=== PATIENT | female | born 1985 | race Caucasian/White ===

== ENCOUNTER 2017-11-22 21:21 | Emergency (ER) | payer OTHER, SELFPAY ==
[2017-11-22 21:23] VITALS: BP 141/72; PULSE 93; RESP 16; TEMP 36.6; O2SAT 96; BMI 38.0
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
== END 2017-11-22 22:18 | disposition home or self-care (01) ==
LOC: ED 22:08
PROVIDERS: Emergency Provider Emergency Medicine
DX: S20.212A Contusion of left front wall of thorax, initial encounter (principal); V43.52XA Car driver injured in collision with other type car in traffic accident, initial encounter; Y93.9 Activity, unspecified; Y92.9 Unspecified place or not applicable; Y99.9 Unspecified external cause status
CPT/HCPCS: 71046; 99282

== ENCOUNTER → 2018-01-20 15:30 | Outpatient (CLI) | payer OTHER, SELFPAY ==
[2018-01-20 17:39] LABS: Absolute Lymphocyte Count 2.98 X10^3/ul (0.83-4.51); Absolute Neutrophil Count 6.4 X10^3/uL (2.0-7.7); Basophil# 0.03 X10^3/uL; Basophil% 0.3 % (0-1); Eosinophil# 0.25 X10^3/uL; Eosinophils% 2.4 % (0-5); Hematocrit 40.7 % (37-47); Hemoglobin 13.3 g/dl (12.0-15.0); Lymphocyte # 2.98 X10^3/ul (4.0); Lymphocyte % 29.1 % (19-41); Mean Corp Hgb Conc 32.7 g/gl (32-36); Mean Corpuscular Hgb 32.1 pg (27.0-32.0); Mean Corpuscular Volume 98.3 fL (81-99); Mean Platelet Vol. 12.4 fl (6.2-12.0); Monocyte# 0.54 X10^3/uL; Monocyte% 5.3 % (0-10); Neutrophil # 6.39 X10^3/uL (2.7-7.7); Neutrophil % 62.4 % (47-70); Platelet Count 241 K/mm3 (150-450); RBC Distribution Width CV 14.6 % (11.6-14.6); RBC Distribution Width SD 51.6 fl (35.1-43.9); Red Blood Count 4.14 M/mm3 (4.2-5.4); White Blood Count 10.2 K/mm3 (4.4-11.0)
[2018-01-20 17:40] LABS: POSITIVE COUNT NO; POSITIVE DIFFERENTIAL NO; POSITIVE MORPHOLOGY NO
[2018-01-20 19:28] LABS: ALB/GLOB Ratio 1.1 RATIO (0.9-2.4); AST(SGOT) 35 U/L (15-37); Alanine Aminotransfer ALT/SGPT 29 U/L (13-56); Albumin, Serum 4.2 g/dL (3.2-5.0); Alkaline Phosphatase 98 U/L (45-117); Anion Gap 7 (5-15); BUN 10 mg/dL (7-18); Calcium,Total 9.1 mg/dL (8.5-10.1); Chloride 105 mmol/L (98-107); Creatinine, Serum 0.77 mg/dL (0.55-1.02); EST Glomerular Filtration Rate 91 mL/min (>60); Est Glom Filt Rate - Afr Amer 110 mL/min (>60); Globulin 3.7 g/dL (2.2-4.2); Glucose 92 mg/dL (74-106); Potassium 3.8 mmol/L (3.5-5.1); Protein, Total 7.9 g/dL (6.4-8.2); Sodium Level 140 mmol/L (136-145); T4 Total, Thyroxin 1.7 ug/dL (4.8-13.9)
== END ==
PROVIDERS: Visit Provider Family Medicine
DX: E03.9 Hypothyroidism, unspecified (principal); R53.81 Other malaise; R53.83 Other fatigue
CPT/HCPCS: 36415; 80053; 84436; 84443; 85025

== ENCOUNTER → 2018-02-24 12:44 | Outpatient (CLI) | payer OTHER, SELFPAY ==
[2018-02-24 14:00] LABS: Thyroid Stim Hormone (TSH) 0.36 uIU/mL (0.358-3.74)
== END ==
PROVIDERS: Family Provider Family Medicine; PCP Family Medicine; Visit Provider Family Medicine
DX: E03.9 Hypothyroidism, unspecified (principal)
CPT/HCPCS: 36415; 84443

== ENCOUNTER → 2018-03-25 13:49 | Outpatient (CLI) | payer OTHER, SELFPAY | LOC: MFPLAB 13:50 | PROVIDERS: Family Provider Family Medicine; PCP Family Medicine; Visit Provider Family Medicine | DX: E03.9 Hypothyroidism, unspecified (principal) | CPT/HCPCS: 36415; 84443 ==

== ENCOUNTER 2018-10-19 09:48 | Day surgery (SDC) | payer OTHER, SELFPAY ==
[2018-08-24 09:33] VITALS: BMI 39.1
[2018-09-23 13:57] VITALS: BMI 37.5
--- NOTE | 2018-09-24 08:29 | HP_ITS ---
Intake Vital Signs 09/23/18 Height 5 ft 7 in 09/23/18 Weight: 240 lb 09/23/18 Body Mass Index (BMI) 37.5 09/23/18 Blood Pressure 126/83 H 09/23/18 Blood Pressure Location Rt brachial 09/23/18 Blood Pressure Position Sitting 09/23/18 Respiratory Rate 14 09/23/18 Pulse Rate 85 09/23/18 Pulse Source Monitor 09/23/18 Temperature 98.3 F 09/23/18 Temperature Source Oral 09/23/18 Pulse Ox 97 09/23/18 Oxygen Delivery Method room air Intake Visit Reasons: Update Hernia Surgery 10/19 Chief Complaint: back and neck pain Clinical Rehabilitation Liaison Required: No Is patient in pain?: No Allergies Sulfa (Sulfonamide Antibiotics) Allergy (Verified 11/22/17 21:25) Unknown Iodinated Contrast- Oral and IV Dye Adverse Reaction (Mild, Verified 08/24/18 09:33) emesis Medications Levothyroxine [Synthroid] 200 mcg PO DAILY@0600 10/25/15 [History Confirmed 11/22/17] PFSH Medical History Anemia (Acute) Arthritis (Acute) Back problem (Acute) Depression (Acute) H/O emotional problems (Acute) Heart stopped beating (Acute) History of anesthesia complications (Acute ~2014) Thyroid disease (Acute) Vision problems (Acute) Surgical History History of (Acute) Family History Grandmother Cancer Mother Heart disease Diabetes Father Heart disease Other Arthritis CVA (cerebral vascular accident) Hypertension Respiratory abnormalities Social History Smoking Status: Never smoker alcohol intake: current alcohol intake frequency: a few times a week Alcohol type: beer what type of physical activity do you participate in: walking frequency: 1-2 times per week HPI HPI HPI: MARTHA JASSO, is a 33 F who presents to the office today for HPI HPI Surgical H&P: Yes HPI: MARTHA JASSO, is a 33 F who presents to the office today for left ventral hernia. Patient states that she has had a viral cold/cough and she has been having to push the hernia back in often. Patient states that her cough is improving and is only at night occasionally. Patient was initially waiting for a change in insurance before scheduling however they met there deductible due to ER visit, so plan to schedule repair. Patient tolerating diet denies any nausea or vomiting. Patient does have pain at the site however it does go away once it is pushed back in. Exam Const General: cooperative, comfortable, no acute distress Resp Effort & Inspection: normal respiratory effort Cardio Rate: regular rate GI Palpation: soft, no guarding, hernia, nontender Other: Hernia is supraumbilical about 2 cm above the umbilicus slightly to the left, partially reducible may still have a small component that is not reducible but the majority is able to be reduced. Assessment & Plan Problems 1. Ventral hernia without obstruction or gangrene K43.9 Plan Plan to do ventral hernia repair with possible mesh. Reviewed the procedure with the patient including the risks, including but not limited to infection, bleeding, injury to the small bowel, and recurrence. All questions were answered. Also, discussed risk of strangulated bowel. Cautioned the patient that if she has N/V, ABD distention, increased umbilical pain or changes of the skin over the hernia she needs to go to the ER. No further questions this time. Currently her surgical surgery date is 10/19/18. Patient's KT date is the week prior. Patient states that when she had her her heart did stop looks like it may have been a vagal response will have anesthesia take a look at the records she looks like she did have an echo which was normal at that time 2016. Saumya Hollingsworth M.D. Pager: [phone] [facility] [address] [place] [address], [address] [place] [address] Office: [phone] Plan Detail Goals Decrease pain and inflammation Allow patient to lift children better Barriers Repetitive lifting Follow Up We will schedule surgery Coding Level of Care Code Off vis,est,level 3 Diagnoses Ventral hernia without obstruction or gangrene K43.9 09/29/18 0900 <Electronically signed by Saumya Hollingsworth MD> Date Saumya Hollingsworth MD I have re-examined the patient. There are no clinical changes since date of exam.
[2018-09-29 15:17] VITALS: BP 128/83; PULSE 85; RESP 16; TEMP 36.8; O2SAT 95; BMI 38.4
--- NOTE | 2018-10-08 12:11 | EKG12_ITS ---
Test Reason : PREOP Blood Pressure : / mmHG Vent. Rate : 088 BPM Atrial Rate : 088 BPM P-R Int : 160 ms QRS Dur : 088 ms QT Int : 352 ms P-R-T Axes : 048 013 011 degrees QTc Int : 425 ms Normal sinus rhythm Normal ECG Confirmed by MEI SHUKLA, SANTIAGO ([id number]), mapping editor ELY SALAS ([id number]) on 10/13/2018 1:43:08 PM Referred By: Saumya Hollingsworth Confirmed By:SANTIAGO HURLEY MD
[2018-10-08 14:00] LABS: Hematocrit 42.1 % (37-47); Hemoglobin 13.7 g/dl (12.0-15.0); Mean Corp Hgb Conc 32.5 g/gl (32-36); Mean Corpuscular Hgb 30.6 pg (27.0-32.0); Mean Corpuscular Volume 94.2 fL (81-99); Mean Platelet Vol. 12.6 fl (6.2-12.0); Platelet Count 266 K/mm3 (150-450); RBC Distribution Width CV 13.3 % (11.6-14.6); RBC Distribution Width SD 44.1 fl (35.1-43.9); Red Blood Count 4.47 M/mm3 (4.2-5.4); White Blood Count 7.6 K/mm3 (4.4-11.0)
[2018-10-08 14:06] LABS: Scan Indicated on CBC? Y/N NO
[2018-10-08 14:31] LABS: Anion Gap 8 (5-15); BUN 11 mg/dL (7-18); BUN/Creat Ratio 17.2 RATIO (10-20); Calcium,Total 8.9 mg/dL (8.5-10.1); Chloride 105 mmol/L (98-107); Creatinine, Serum 0.64 mg/dL (0.55-1.02); EST Glomerular Filtration Rate 112 mL/min (>60); Est Glom Filt Rate - Afr Amer 136 mL/min (>60); Estimated Creatinine Clearance 114.86 ml/min; Glucose 91 mg/dL (74-106); Potassium 3.7 mmol/L (3.5-5.1); Sodium Level 140 mmol/L (136-145); Thyroid Stim Hormone (TSH) 0.66 uIU/mL (0.358-3.74)
[2018-10-19 10:08] LABS: Internal QC Validated? YES +Cl - CLEAR BKGD; Pregnancy, Urine Negative Negative
[2018-10-19 10:43] VITALS: BP 132/77; PULSE 70; RESP 14; TEMP 37.1; O2SAT 94; BMI 38.4
[2018-10-19] MEDS: Cefazolin 2 GM in 0.9% Normal Saline 100 ML IV (11:04)
--- NOTE | 2018-10-19 11:09 | DCINST_ITS ---
Discharge Diet: Light diet - advance as tolerated Discharge Activity: May not drive while taking narcotic pain medications. May shower in (days): 1 Lifting Restrictions: No lifting greater 20 pounds x 4 weeks, no strenuous exercise for 6 weeks Call your doctor if your incision/area has: Continuous Slow Oozing, Sudden Increased Bleeding, Increased Pain/ Swelling, Increased Redness, Foul Smelling Discharge, Swelling at the incision site Call your doctor if you observe: Fever of 101 or Higher Additional Instructions: Okay to take ibuprofen 400-600 mg PO q6hr PRN along with the Percocet. Avoid Tylenol since there is already Tylenol in the Percocet. Take all pain meds with food. Percocet can cause constipation recommend taking daily stool softener (i.e. Colace/docusate) while taking the pain meds. Recommend starting some MiraLAX in 1 to 2 days if no bowel movement. If still no bowel movement the following day recommend taking magnesium citrate half the bottle and waiting 4-6 hours if still no results take the other half the bottle. Allergies/Adverse Reactions: Allergies Sulfa (Sulfonamide Antibiotics) Allergy (Verified 09/29/18 15:15) Unknown Iodinated Contrast- Oral and IV Dye Adverse Reaction (Mild, Verified 09/29/18 15:15) emesis Medications to take at Discharge Levothyroxine [Synthroid] 200 mcg PO DAILY@0600 10/25/15 Duloxetine HCl 60 mg PO DAILY 09/29/18 Oxycodone HCl/Acetaminophen [Percocet 5/325] 1 - 2 tablet PO Q6H PRN PRN 5 Days #25 tablet 10/19/18 The following prescriptions were given: Oxycodone HCl/Acetaminophen [Percocet 5/325] 1 - 2 tablet PO Q6H PRN PRN 5 Days #25 tablet PRN Reason: Pain Orders to be completed after discharge: 12 Lead EKG [CVS] Time Frame: 09/30/18, Facility: [facility], Location: Cardiovascular Services Basic Metabolic Profile (BMP) Time Frame: 09/30/18, Location: Laboratory CBC-Complete Blood Cnt No Diff Time Frame: 09/30/18, Location: Laboratory Thyroid Stim Hormone (TSH) Time Frame: 09/30/18, Location: Laboratory ,Urine Time Frame: 10/19/18, Location: Laboratory Primary Care Physician: Lynn Holloway MD [Primary Care Provider] - Test Results: Test results from this visit will be discussed in further detail at your follow- up appointment, if applicable. Please Follow Up With: Saumya Hollingsworth MD - Any concerns or questions after 5/weekends call [phone]. When: Call the office for follow-up appointment 2 weeks. Proposed Discharge Date: 10/19/18
--- NOTE | 2018-10-19 11:55 | PCM.OPRPT ---
Report of Operation Date of Procedure: 10/19/18 Pre-Operative Diagnosis: Incarcerated ventral hernia Post-Operative Diagnosis: Same Surgery/Procedure Performed:: Incarcerated ventral hernia repair with mesh supplier manager: Julia Miller Type of Anesthesia:: General/Supplemental Anesthesiologist: Jorge Palafox Special Medications: Ancef 2 g IV x1 Specimen's removed: None Estimated Blood Loss (mL): < 5cc Fluids Replaced: 500 cc Description of Procedure: Patient was brought into the room placed supine on the operating table. Correct patient, procedure, site, positioning, special equipment was verified prior to procedure. General anesthesia was induced. The abdomen was prepped draped in usual sterile fashion. A supraumbilical midline was made with a 15 blade scalpel at the location of the ventral hernia which was preoperatively identified using ultrasound. This was deepened with electrocautery. The hernia was identified and abdominal fat was reduced. The fascia around the hernia defect was cleared and the hernia defect measured 10 mm x [address] hernia patch [place] was placed--lot [id number] reference [id number]--, which was able to lay flat against the fascia. 1-0 Nurolon interrupted sutures were used to secure the medial lateral tails of the mesh as well as inferiorly and superiorly. 1-0 Nurolon fear of 8 suture was used to close the hernia defect. The wound was irrigated with saline. Hemostasis was assured. The incision was closed with 3-0 Vicryl subdermal interrupted sutures and the skin was closed with interrupted 4-0 Monocryl sutures. Steri-Strips and OpSite were placed over the incision. Patient was extubated. Patient tolerated procedure well and was taken to the postanesthesia care unit in stable condition. Grafts/Implants Used: Ventralex ST hernia patch [place], lot [id number] reference [id number] - Complications none
--- NOTE | 2018-10-19 12:00 | OP.PCM_ITS ---
Report of Operation Date of Procedure: 10/19/18 Pre-Operative Diagnosis: Incarcerated ventral hernia Post-Operative Diagnosis: Same Surgery/Procedure Performed:: Incarcerated ventral hernia repair with mesh camp tender: Julia Miller Type of Anesthesia:: General/Supplemental Anesthesiologist: Jorge Palafox Special Medications: Ancef 2 g IV x1 Specimen's removed: None Estimated Blood Loss (mL): < 5cc Fluids Replaced: 500 cc Description of Procedure: Patient was brought into the room placed supine on the operating table. Correct patient, procedure, site, positioning, special equipment was verified prior to procedure. General anesthesia was induced. The abdomen was prepped draped in usual sterile fashion. A supraumbilical midline was made with a 15 blade scalpel at the location of the ventral hernia which was preoperatively identified using ultrasound. This was deepened with electrocautery. The hernia was identified and abdominal fat was reduced. The fascia around the hernia defect was cleared and the hernia defect measured 10 mm x [address] hernia patch [place] was placed--lot [id number] reference [id number]--, which was able to lay flat against the fascia. 1-0 Nurolon interrupted sutures were used to secure the medial lateral tails of the mesh as well as inferiorly and superiorly. 1-0 Nurolon fear of 8 suture was used to close the hernia defect. The wound was irrigated with saline. Hemostasis was assured. The incision was closed with 3-0 Vicryl subdermal interrupted sutures and the skin was closed with interrupted 4-0 Monocryl sutures. Steri-Strips and OpSite were placed over the incision. Patient was extubated. Patient tolerated procedure well and was taken to the postanesthesia care unit in stable condition. Grafts/Implants Used: Ventralex ST hernia patch [place], lot [id number] reference [id number] - Complications none
--- NOTE | 2018-10-19 12:00 | PCM.DC.GS ---
Discharge Diet: Light diet - advance as tolerated Discharge Activity: May not drive while taking narcotic pain medications. May shower in (days): 1 Lifting Restrictions: No lifting greater 20 pounds x 4 weeks, no strenuous exercise for 6 weeks Call your doctor if your incision/area has: Continuous Slow Oozing, Sudden Increased Bleeding, Increased Pain/ Swelling, Increased Redness, Foul Smelling Discharge, Swelling at the incision site Call your doctor if you observe: Fever of 101 or Higher Additional Instructions: Okay to take ibuprofen 400-600 mg PO q6hr PRN along with the Percocet. Avoid Tylenol since there is already Tylenol in the Percocet. Take all pain meds with food. Percocet can cause constipation recommend taking daily stool softener (i.e. Colace/docusate) while taking the pain meds. Recommend starting some MiraLAX in 1 to 2 days if no bowel movement. If still no bowel movement the following day recommend taking magnesium citrate half the bottle and waiting 4-6 hours if still no results take the other half the bottle. Allergies/Adverse Reactions: Allergies Sulfa (Sulfonamide Antibiotics) Allergy (Verified 09/29/18 15:15) Unknown Iodinated Contrast- Oral and IV Dye Adverse Reaction (Mild, Verified 09/29/18 15:15) emesis Medications to take at Discharge Levothyroxine [Synthroid] 200 mcg PO DAILY@0600 10/25/15 Duloxetine HCl 60 mg PO DAILY 09/29/18 Oxycodone HCl/Acetaminophen [Percocet 5/325] 1 - 2 tablet PO Q6H PRN PRN 5 Days #25 tablet 10/19/18 The following prescriptions were given: Oxycodone HCl/Acetaminophen [Percocet 5/325] 1 - 2 tablet PO Q6H PRN PRN 5 Days #25 tablet PRN Reason: Pain Orders to be completed after discharge: 12 Lead EKG [CVS] Time Frame: 09/30/18, Facility: [facility], Location: Cardiovascular Services Basic Metabolic Profile (BMP) Time Frame: 09/30/18, Location: Laboratory CBC-Complete Blood Cnt No Diff Time Frame: 09/30/18, Location: Laboratory Thyroid Stim Hormone (TSH) Time Frame: 09/30/18, Location: Laboratory ,Urine Time Frame: 10/19/18, Location: Laboratory Primary Care Physician: Lynn Holloway MD [Primary Care Provider] - Test Results: Test results from this visit will be discussed in further detail at your follow-up appointment, if applicable. Please Follow Up With: Saumya Hollingsworth MD - Any concerns or questions after 5/weekends call [phone]. When: Call the office for follow-up appointment 2 weeks. Proposed Discharge Date: 10/19/18
[2018-10-19] MEDS: Bupivacaine Mpf 0.5% 30 ML VIAL (12:03)
[2018-10-19 12:13] VITALS: BP 129/86; BP 132/77; PULSE 81; RESP 16; TEMP 36.2; O2SAT 94
[2018-10-19 12:15] VITALS: BP 123/74; BP 132/77; PULSE 80; RESP 16; TEMP 36.2; O2SAT 98
[2018-10-19 12:30] VITALS: BP 121/73; BP 132/77; PULSE 74; RESP 16; O2SAT 93
[2018-10-19 12:39] VITALS: BP 124/81; BP 132/77; PULSE 68; RESP 16; TEMP 36.1; O2SAT 93
[2018-10-19 13:15] VITALS: BP 132/77
== END 2018-10-19 13:45 | disposition home or self-care (01) ==
LOC: SDC 09:50 → AC 09:51
PROVIDERS: Anesthesiology; Family Provider Family Medicine; PCP Family Medicine; Referring Provider Surgery; Visit Provider Surgery
PROC: (CPT 49561; principal; 2018-10-19 10:55)
DX: K43.6 Other and unspecified ventral hernia with obstruction, without gangrene (principal); E07.9 Disorder of thyroid, unspecified; I27.20 Pulmonary hypertension, unspecified; F32.9 Major depressive disorder, single episode, unspecified; F41.9 Anxiety disorder, unspecified; Z79.899 Other long term (current) drug therapy; Z88.2 Allergy status to sulfonamides
CPT/HCPCS: 49561; 49568; 36415; 80048; 81025; 84443; 85027; 93005; J7120; C1781; J2405

== ENCOUNTER → 2019-07-07 16:13 | Outpatient (CLI) | payer OTHER, SELFPAY ==
[2019-07-07 18:28] LABS: T4 Total, Thyroxin 9.4 ug/dL (4.8-13.9); Thyroid Stim Hormone (TSH) 3.01 uIU/mL (0.358-3.74)
== END ==
PROVIDERS: PCP Family Medicine; Referring Provider Family Medicine; Visit Provider Family Medicine
DX: E03.9 Hypothyroidism, unspecified (principal)
CPT/HCPCS: 36415; 84436; 84443

== ENCOUNTER → 2020-11-20 | Outpatient (CLI) | payer MEDICAID, SELFPAY ==
[2020-11-23 03:06] LABS: Chlamydia By Nucleic Acid AMP Negative (Negative)
[2020-11-23 14:23] LABS: Gonococcus By Nucleic Acid AMP Negative (Negative)
== END | disposition home or self-care (01) ==
LOC: LABSPEC 16:47
PROVIDERS: PCP Family Medicine; Visit Provider Obstetrics & Gynecology
DX: Z34.81 Encounter for supervision of other normal pregnancy, first trimester (principal)
CPT/HCPCS: 87491; 87591

== ENCOUNTER → 2020-12-18 15:15 | Outpatient (CLI) | payer OTHER, SELFPAY ==
--- NOTE | 2020-12-18 15:19 | US_ITS ---
STUDY: ULTRASOUND OF THE FEMALE PELVIS - COMPLETE REASON FOR EXAM: Female, 35 years old. MISSED ABO LMP: 10/06/2020. TECHNIQUE: Transabdominal and Transvaginal TECHNICAL QUALITY: Adequate. COMPARISON: None. FINDINGS: The uterus is anteverted and is in a midline position. The uterus measures 9.3 cm x 7.3 cm x 4.2 cm. Normal uterine cervix. The endometrium measures 5.7 mm in thickness, and is hyperechoic. There is no demonstrated endometrial mass. There is no demonstrated myometrial mass. Small amount of complex fluid is seen in the lower uterine segment. I.U.D. - The patient does not have an I.U.D. The right ovary is visualized. The right ovary measures 3.6 cm x 2.7 cm x 2.6 cm. There is a 2.4 cm x 2.5 cm x 2.1 cm right ovarian cyst. There is no visualized right adnexal mass or complex lesion. There is normal arterial and normal venous vascularity. The left ovary is visualized. The left ovary measures 3.2 cm x 2.6 cm x 2.1 cm. There is a 2.1 cm x 1.7 cm x 1.6 cm cyst. There is no visualized left adnexal mass or complex lesion. There is normal arterial and normal venous vascularity. There is no fluid in the cul-de-sac. US/Pelvic (Non ) IMPRESSION: Bilateral ovarian cyst. Electronically Signed: Humberto Hayes MD at 14:58 EDT , Service support ,
== END ==
LOC: US 15:18
PROVIDERS: Referring Provider Obstetrics & Gynecology; Visit Provider Obstetrics & Gynecology
DX: O02.1 Missed abortion (principal)
CPT/HCPCS: 76856

== ENCOUNTER → 2021-02-06 15:24 | Outpatient (CLI) | payer OTHER, SELFPAY ==
[2021-02-06 16:27] LABS: Hemoglobin A1c 5.8 % (3.8-5.6)
[2021-02-06 16:31] LABS: T4 Free Direct 0.39 ng/dL (0.76-1.46)
== END ==
PROVIDERS: PCP Nurse Practitioner Adult Health; Referring Provider Nurse Practitioner Adult Health; Visit Provider Nurse Practitioner Adult Health
DX: E03.9 Hypothyroidism, unspecified (principal)
CPT/HCPCS: 36415; 83036; 84439; 84443

== ENCOUNTER 2021-09-26 11:51 | Emergency (ER) | payer OTHER, SELFPAY ==
[2021-09-26 11:52] VITALS: BP 131/89; PULSE 87; RESP 16; TEMP 36.2; O2SAT 100; BMI 36.3
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
--- NOTE | 2021-09-26 12:17 | EX.ED.GENINJ ---
HPI History of Present Illness Chief Complaint: Head Injury Informant: patient Onset/Context/Timing Onset: Yesterday Mechanism/Context: Fall Current Severity: Mild Maximum Severity: Moderate Associated Symptoms Associated Symptoms: Negative for Parasthesias, Weakness, Loss of function, Inability to ambulate, Loss of consciousness and Amnesia Narrative Narrative: 28-year-old female history of anemia and hypothyroidism. States that she slipped and fell on a blanket was left on the floor last night she went up in the air and struck her head on the floor when she landed. No obvious LOC. She has had a headache and upper shoulder pain and upper chest pain since a fall. She denies any vomiting. No neurological symptoms. Prior similar symptoms: No Recent Illness/Hospitalization: No PFSH PFSH Medical History (Updated 09/26/21 @ 12:[address] Guero Espinosa MD) Anemia Arthritis Back problem Depression H/O emotional problems Heart stopped beating History of anesthesia complications (~2014) Thyroid disease Vision problems Home Medications levothyroxine 200 mcg PO DAILY@0600 10/25/15 [History Last Taken 11/06/16 07:00 200 mcg] duloxetine 60 mg PO DAILY 09/29/18 [History Last Taken Unknown] Allergy/AdvReac Type Severity Reaction Status Date / Time Sulfa (Sulfonamide Allergy Unknown Verified 09/26/21 11:51 Antibiotics) Iodinated Contrast Media AdvReac Mild emesis Verified 09/26/21 11:51 [Iodinated Contrast- Oral and IV Dye] Family History Grandmother Cancer Mother Heart disease Diabetes Father Heart disease Other Arthritis CVA (cerebral vascular accident) Hypertension Respiratory abnormalities Surgical History History of Hx of ventral hernia repair Social History Smoking Status: Never smoker alcohol intake: current alcohol intake frequency: a few times a week Alcohol type: beer what type of physical activity do you participate in: walking frequency: 1-2 times per week ROS ROS ED ROS Narrative Denies recent illness. Review of Systems ROS Unobtainable: Denies due to encephalopathy Constitutional Constitutional ED: Denies fever(s) Eyes Eyes: Denies change in vision ENT ENT ED: Denies ear pain Cardiovascular Cardiovascular: Reports palpitations; Denies chest pain Respiratory/Chest Respiratory/Chest: Denies dyspnea Gastrointestinal Gastrointestinal: Denies abdominal pain Genitourinary Genitourinary ED: Denies dysuria Musculoskeletal Musculoskeletal: Denies myalgias Integumentary Denies rash Neurologic Neurologic: Reports headache(s) Psychiatric Psychiatric: Denies depression Endocrine Endocrinology: Denies polyuria Hematologic/Lymphatic Hematologic/Lymphatic: Denies easy bruising Allergic/Immunologic Allergic/Immunologic ED: Denies urticaria EXAM Physical Exam Narrative Exam Narrative: 28-year-old female no acute distress. Vital signs stable afebrile. H EENT exam. Legs motions are intact. She has tenderness in the back of her scalp but no hematoma or laceration. No facial trauma. TMs normal bilaterally. No hemotympanum. Neck C-spine nontender. Trachea midline. Normal range of motion. Lungs clear to auscultation. Heart regular rhythm no murmur. Chest wall nontender. Abdomen soft nontender. Pelvic girdle intact. Upper back and thoracic soft tissue tenderness. No ecchymosis or bruising. Spine nontender. Moving all 4 extremities. Normal motor strength and sensation. Full range of motion. Neurologic exam normal. GCS of 15. Const Vital Signs: 09/26/21 11:52 09/26/21 12:04 Temperature 97.1 F L Temperature Source Temporal Pulse Rate 87 Respiratory Rate 16 Respiratory Effort Normal Non-Labored Respiratory Depth Normal Respiratory Pattern Normal Blood Pressure 131/89 H Blood Pressure Mean 103 Pulse Ox 100 Oxygen Delivery Method Room Air Room Air Positive well nourished, well developed and obese; Negative for cachectic, contractures or unkempt General Appearance ED: well developed and NAD; Negative for unkempt, cachectic or contractures Nutritional Appearance: obese; Negative for cachectic HEENT trauma and tenderness; Negative for atraumatic Eyes PERRL and EOMs intact bilaterally Neck full ROM General: Negative for tenderness Chest Wall inspection of chest normal and palpation of chest normal Resp normal respiratory effort and clear to auscultation bilaterally Auscultation: Negative for rales, rhonchi or wheezes Cardio regular rhythm, S1 normal heart sound, S2 normal heart sound and no murmurs Rate: regular rate GI normal to inspection, nondistended, normoactive bowel sounds, non-tender, non-distended and no masses Inspection: Negative for abdominal distention Auscultation: normoactive bowel sounds Palpation: soft; Negative for tender, guarding or rebound tenderness present Back/Spine normal to inspection and no thoracic nor lumbar tenderness Back/Spine Narrative: Upper back soft tissue tenderness. General Back: Negative for CVA tenderness Thoracic Spine / Upper Back: Negative for thoracic spinal tenderness Lumbar Spine / Lower Back: straight leg raise negative bilaterally Extremity normal to inspection and full ROM General Extremety ED: Negative for deformity, edema or tenderness General Extremity: Negative for deformity or edema Neuro oriented x3, CN's II-XII intact bilaterally, moves all extremities, no focal motor deficits and no sensory deficits noted [place] Coma Scale: document GCS findings Spontaneous Obeys Commands Oriented 15 Sensorium / Orientation: alert, oriented to person, oriented to place and oriented to time; Negative for orientation impaired, lethargic or stuporous Motor Exam: strength 5/5 throughout Psych mental status grossly normal and thought process normal Appearance: Negative for unkempt Attitude: No agitated Mood & Affect: anxious; Negative for depressed or tearful Skin no rashes or lesions noted, no wounds and no jaundice Rashes: No rashes noted MDM MDM MDM Narrative Medical decision making narrative: 36-year-old female fell last night when she slipped on a blanket on the floor and hit her head. Complaining of a headache. Clinically I think this is a closed head injury and concussion. She is specifically requesting a CAT scan because she is worried about intracranial bleed. I explained to her I think it is very unlikely. She understands that but still wants a CAT scan done. Radiography Diagnostic Testing: CT of the brain shows no acute abnormality. Read by myself and the radiologist. Discharge Plan Triage Chief Complaint: Head Injury ED Provider: Guero Espinosa Dx/Rx/DC Orders Clinical Impression: Fall, Closed head injury, Concussion, Back strain Instructions: ED Head Injury (Adult) Prescriptions: No Action levothyroxine 137 MCG tablet 200 mcg PO DAILY@0600 RF: 0 duloxetine 60 MG capsule,delayed release(DR/EC) 60 mg PO DAILY RF: 0 Primary Care Provider: Bahman Lopez Referrals: Bahman Lopez MD [Primary Care Provider] - 1 Week if not improving Activity Restrictions/Additional Instructions: To have a closed injury and mild concussion. Ice to your scalp. Tylenol Motrin for pain. This should progressively improve. Follow-up with your doctor if not improving. Disposition Disposition: Home, Self Care
[2021-09-26 13:44] VITALS: PULSE 84; RESP 16; O2SAT 97
== END 2021-09-26 13:45 | disposition home or self-care (01) ==
PROVIDERS: Emergency Provider Emergency Medicine; PCP Internal Medicine; Visit Provider Emergency Medicine
DX: S06.0X0A Concussion without loss of consciousness, initial encounter (principal); S39.012A Strain of muscle, fascia and tendon of lower back, initial encounter; W18.31XA Fall on same level due to stepping on an object, initial encounter; E07.9 Disorder of thyroid, unspecified; E66.9 Obesity, unspecified; Z68.36 Body mass index [BMI] 36.0-36.9, adult; Z79.899 Other long term (current) drug therapy
CPT/HCPCS: 70450; 99282

== ENCOUNTER 2022-02-08 13:59 | Day surgery (SDC) | payer OTHER, SELFPAY ==
[2022-02-08] VITALS (8 sets, daily range): BP systolic 98–121; BP diastolic 65–73; PULSE 68–79; RESP 16–18; TEMP 36.4–36.6; O2SAT 94–100; BMI 33.0
[2022-02-08] MEDS: Lactated Ringers 1,000 ML 15 ML IV (14:20)
[2022-02-08 14:59] LABS: Hematocrit 38.6 % (37-47); Hemoglobin 13.1 g/dL (12.0-15.0); Mean Corp Hgb Conc 33.9 g/dL (32-36); Mean Corpuscular Hgb 33.1 pg (27.0-32.0); Mean Corpuscular Volume 97.5 fL (81-99); Mean Platelet Vol. 11.4 fl (6.2-12.0); Platelet Count 220 K/mm3 (150-450); RBC Distribution Width CV 12.6 % (11.6-14.6); RBC Distribution Width SD 45.1 fl (35.1-43.9); Red Blood Count 3.96 M/mm3 (4.2-5.4); White Blood Count 11.2 K/mm3 (4.4-11.0)
--- NOTE | 2022-02-08 15:47 | EKG12_ITS ---
Test Reason : PRE OP Blood Pressure : / mmHG Vent. Rate : 078 BPM Atrial Rate : 078 BPM P-R Int : 164 ms QRS Dur : 094 ms QT Int : 366 ms P-R-T Axes : 037 019 020 degrees QTc Int : 417 ms Normal sinus rhythm Low voltage QRS Borderline ECG When compared with ECG of 08-OCT-2018 12:32, No significant change was found Confirmed by MEI SHUKLA, SANTIAGO ([id number]), design editor ELY SALAS ([id number]) on 02/13/2022 11:26:43 AM Referred By: ROSALIA Confirmed By:SANTIAGO HURLEY MD
--- NOTE | 2022-02-08 16:15 | DCINST_ITS ---
Discharge Instructions Diet Discharge Diet: No restrictions Activity Discharge Activity: May Drive (once you are more than 24 hours out from surgery) and May Shower (once you are more than 24 hours out from surgery) May resume sexual activity in: 1 week (no tampons, intercourse, hot tubs, baths, or pools) Weight Bearing Status: Weight bearing as tolerated Lifting Restrictions: none Dressing / Incision Call your doctor if you observe: Fever of 101 or Higher, Coldness, Increased Pain, Numbness or Tingling, Change in Color, Inability to urinate, Inability to have a bowel movement, Using more than 1 pad per hour, Shortness of breath, Dizziness, Fainting spells, Swelling in the ankles, Chest pain, Increased palpitations (irregular heartbeat), Calf discomfort and Uncontrolled pain Follow Up Care Please Follow Up With: Caryl Silveira DO When: 1 week Test Results: Test results from this visit will be discussed in further detail at your follow- up appointment, if applicable. Discharge Plan Admission Primary Reason for Your Visit: surgery Attending Provider: Caryl Silveira Primary Care Provider: Bahman Lopez Discharge Orders/Prescriptions Prescriptions: Continued levothyroxine 137 MCG tablet 125 mcg PO DAILY@0600 multivitamin Tablet 1 tab PO DAILY ferrous sulfate 325 mg (65 mg iron) Tablet 325 mg PO DAILY magnesium 250 mg Tablet 250 mg PO DAILY Referrals / Follow Up: Bahman Lopez MD [Primary Care Provider] - Disposition Disposition (needs filled in before D/C Order can be placed): Home, Self Care
--- NOTE | 2022-02-08 16:45 | OP.PCM_ITS ---
Problems Associated Problem List Diagnoses (1) Incomplete : Report of Operation Date of Procedure: 02/08/22 Pre-Operative Diagnosis: MAB at 7 weeks Post-Operative Diagnosis: As above Surgery/Procedure Performed:: Suction D&C Description of Surgical Findings:: Patient started bleeding and passing tissue prior to surgery. Bedside TAUS performed, which was limited, but showed a likely small amount of retained POC's. The patient was counseled on options and desired to proceed with a suction D&C. Uterus enlarged to about 7 week size and retained tissue noted. Surgeon: Caryl Silveira tenter frame operator: None Type of Anesthesia: MAC Special Medications: None Specimen's removed: Products of conception Drains: None Estimated Blood Loss (mL): < 50 Fluids Replaced: 800 cc Description of Procedure: Patient was taken to the operating room where MAC anesthesia was induced and found to be adequate. She was prepped and draped in the dorsal lithotomy position using yellowfin stirrups. Weighted speculum was placed in the vagina to expose the cervix. The anterior lip of the cervix was grasped with a single- tooth tenaculum. The cervix was about 7 weeks in size. The cervix was already dilated. The size 8 suction curettage was used for several passes to remove the remaining tissue. POC's sent to pathology. A sharp curettage was then used al panda all 4 uterine jeffries noting a good uterine cry. All instruments were removed from the vagina. Bleeding was hemostatic. Vaginal sweep was performed. Instrument sponge counts were correct. The patient was taken to the recovery room in stable condition. Grafts/Implants Used: None Procedure Start Time: 16:28 Procedure Stop Time: 16:33 Complications None Admit VTE Documentation VTE Present on Admission: No VTE Mechan Device Prophylaxis: SCD's
--- NOTE | 2022-02-10 | POC_PTH ---
PATIENT: MARTHA ENGLAND [place] [facility] [place][id number] AGE/SX: 36/F ROOM: RE02/08/[address]: Dr. Caryl Silveira DO : 1985 BED: DIS: 02/08/2022 SPEC #: [id number] RECD: 02/10/22 17:38 STATUS: ANDI REJulio César #: [id number] DEMARIO: 02/10/22 00:[address]: Caryl Silveira DEPT: SURGICAL PATHOLOGY RECD BY: Pastor England ENTERED: 02/12/22 08:50 SP TYPE: PROD CONC OTHR DR: Dr. Bahman Lopez MD Tissues: Product of conception, NOS Procedures: Surgery Specimen Level IV HEADER OPERATION: Suction dilation and curettage PRE-OP DIAGNOSIS: Missed TISSUE SUBMITTED: Products of conception MICROSCOPIC DIAGNOSIS Endometrium, curettage: Secretory endometrium and decidualized tissue. See comment. AM:ben 02/13/2022 COMMENT Chorionic villi are not identified. Clinical correlation is suggested. MICROSCOPIC DESCRIPTION Slides are reviewed. GROSS DESCRIPTION Received in fixative is one container labeled with the patient's name and designated products of conception. The specimen consists of multiple fragments of pink hemorrhagic soft tissue that in aggregate measure 4 x 3 x 0.3 cm. No tissue is identified. The entire specimen is submitted in two one cassettes. / SJ:ben 02/12/2022 TC:5 CPT: 02104
== END 2022-02-08 18:16 | disposition home or self-care (01) ==
LOC: SDC 14:13 → AC 14:13
PROVIDERS: PCP Internal Medicine; Visit Provider Obstetrics & Gynecology
PROC: (CPT 59812; principal; 2022-02-08 15:30)
DX: O03.4 Incomplete spontaneous abortion without complication (principal); O99.280 Endocrine, nutritional and metabolic diseases complicating pregnancy, unspecified trimester; E07.9 Disorder of thyroid, unspecified; Z79.899 Other long term (current) drug therapy; Z86.16 Personal history of COVID-19
CPT/HCPCS: 59812; 01965; 85027; 86850; 86900; 86901; 88305; 93005; J7120; J2405

== ENCOUNTER 2022-07-25 12:27 | Emergency (ER) | payer OTHER, SELFPAY ==
[2022-07-25 12:28] VITALS: BP 129/98; PULSE 127; RESP 20; TEMP 38.2; O2SAT 96; BMI 33.0
--- NOTE | 2022-07-25 13:43 | EDS_ITS ---
HPI History of Present Illness Chief Complaint: General Illness Narrative Narrative: 36-year-old female presenting with fever. She states she has body aches and chills as well. All of her children are sick. Her mother is sick. None of them had to come to the hospital however. Patient states he went to the urgent care to be evaluated and she was told her lungs sounded clear but she needed to come to the ER because her heart rate was rapid. She has had a fever since last night but has not taken anything for fever. She states that because she is in insomniac she does not like to mix meds. She does have a slight cough. She states that her oxygen was anywhere from 89-94 last night at home. She states this was her mother's pulse ox and she was using it. She states her heart rates also been fast since last night. She also states that when she gave to her son her heart stopped. She was told anytime she has a problem with her heart that she should be checked out. [facility] Medical History Anemia Anxiety Arthritis Back problem Blackout Chest pain Depression H/O emotional problems Heart stopped beating History of anesthesia complications (~2014) History of echocardiogram Injury of head and neck Leg cramps Non-smoker Thyroid disease Thyroid disease Vision problems Wears glasses Home Medications levothyroxine 137 mcg tablet 125 mcg PO DAILY@0600 10/25/15 [History Last Taken 02/08/22 06:00] ferrous sulfate 325 mg (65 mg iron) tablet 325 mg PO DAILY 02/06/22 [History Last Taken Unknown] magnesium 250 mg tablet 250 mg PO DAILY 02/06/22 [History Last Taken Unknown] multivitamin 1 tab PO DAILY 02/06/22 [History Last Taken Unknown] Allergy/AdvReac Type Severity Reaction Status Date / Time Sulfa (Sulfonamide Allergy Unknown Verified 07/25/22 12:32 Antibiotics) Iodinated Contrast Media AdvReac Mild emesis Verified 07/25/22 12:32 [Iodinated Contrast- Oral and IV Dye] Family History Grandmother Cancer Mother Heart disease Diabetes Father Heart disease Other Arthritis CVA (cerebral vascular accident) Hypertension Respiratory abnormalities Surgical History History of Hx of ventral hernia repair Social History Smoking Status: Never smoker alcohol intake: current alcohol intake frequency: a few times a week Alcohol type: beer what type of physical activity do you participate in: walking frequency: 1-2 times per week ROS ROS ED Constitutional Constitutional ED: Reports chills and fever(s) Eyes Eyes: Denies change in vision or diplopia ENT ENT ED: Denies rhinorrhea or sore throat Cardiovascular Cardiovascular: Denies chest pain or palpitations Respiratory/Chest Respiratory/Chest: Reports cough and dyspnea on exertion Gastrointestinal Gastrointestinal: Denies abdominal pain, constipation or diarrhea Genitourinary Genitourinary ED: Denies dysuria or hematuria Musculoskeletal Musculoskeletal: Reports myalgias Integumentary Denies abscess or Abrasions Neurologic Neurologic: Reports headache(s); Denies paresthesias or weakness Psychiatric Psychiatric: Denies anxiety or depression EXAM Physical Exam Const Vital Signs: 07/25/22 12:28 07/25/22 13:58 Temperature 100.7 F H Temperature Source Temporal Pulse Rate 127 H Respiratory Rate 20 H Respiratory Effort Short of Breath Respiratory Pattern Normal Blood Pressure 129/98 H Blood Pressure Mean 108 Pulse Ox 96 Oxygen Delivery Method Room Air Positive well nourished General Appearance ED: NAD; Negative for pallor HEENT Reports moist mucous membranes Eyes PERRL and EOMs intact bilaterally Neck no lymphadenopathy Chest Wall inspection of chest normal and palpation of chest normal Resp normal respiratory effort and clear to auscultation bilaterally Auscultation: Negative for rales, rhonchi or wheezes Cardio regular rhythm Rate: tachycardic GI normal to inspection, nondistended, normoactive bowel sounds Back/Spine no CVA tenderness Neuro oriented x3 Sensorium / Orientation: alert Motor Exam: strength 5/5 throughout Psych mental status grossly normal Skin no rashes or lesions noted General Skin Exam: Negative for jaundice or pallor MDM MDM MDM Narrative Medical decision making narrative: 36-year-old female presenting with fever, chills, cough, myalgias. She states that since the of her son she was told anytime she has a cardiac issue she should come be evaluated. She states that she was told her heart rate was too fast. I explained to her that she has a fever since last evening that she has not treated and this is likely why her heart rate is fast. Her lungs are clear to auscultation bilaterally. She states she has had a cough for about a week and a half. He states he had a fever since last night. Her children are sick and her mother is sick. She states this is just typical runny nose stuff. I will obtain a chest x-ray, COVID, influenza, give her a gram of Tylenol. I will also check her urine since she is having bilateral lower quadrant pain. Her abdominal exam is benign. Urinalysis negative for infection but does show urine ketones. Patient ambulated in the hallway and maintained O2 sats from 93 to 95%. Chest x-ray on my interpretation shows no acute cardiopulmonary process and radiology interpreted this and agrees. Rapid COVID/influenza was positive for COVID-19. I feel at this point patient is stable to be discharged home. I will send her home with a prescription for Zofran. I will not treat her with antivirals because she states she has been coughing for a week and a half and this is outside the window of treatment. Return precautions discussed. Impression: 1. COVID-19 2. Febrile illness 3. Tachycardia Lab Data Attestation: I reviewed the patient's lab results. Labs: Laboratory Results - last 24 hr 07/25/22 13:55 Urine Color Yellow Urine Clarity Sl. Cloudy Urine pH 8.0 Ur Specific [place] 1.015 Urine Protein 30 H Urine Glucose (UA) Normal Urine Ketones 150 A* Urine Occult Blood Negative Urine Nitrite Negative Urine Bilirubin Negative Urine Urobilinogen Normal Ur Leukocyte Esterase Negative Urine RBC 0 SEEN Urine WBC 0 SEEN Ur Squamous Epith Cells 0-5 SEEN Urine Bacteria 0 SEEN Urine Mucus 0 SEEN Urine Test Negative Radiography Diagnostic Testing: Clinical Impression(s) from Imaging Studies Chest X-Ray 07/25/22 14:20 IMPRESSION: No radiographic evidence of acute cardiopulmonary disease. Electronically Signed: Harley Chua MD at 14:52 EST , Discharge Plan Triage Chief Complaint: General Illness ED Provider: Randell Hassan Dx/Rx/DC Orders Prescriptions: No Action levothyroxine 137 MCG tablet 125 mcg PO DAILY@0600 multivitamin Tablet 1 tab PO DAILY ferrous sulfate 325 mg (65 mg iron) Tablet 325 mg PO DAILY magnesium 250 mg Tablet 250 mg PO DAILY Primary Care Provider: Bahman Lopez Referrals: Bahman Lopez MD [Primary Care Provider] -
[2022-07-25] MEDS: Acetaminophen 500 MG Tablet 1000 MG PO (13:55)
[2022-07-25 14:07] LABS: Bacteria 0 SEEN /hpf (None Seen); Mucous, Urine 0 SEEN /hpf (<or=2+); Red Blood Cells-Urine 0 SEEN /hpf (0-5); White Blood Cells 0 SEEN /hpf (0-5)
[2022-07-25 14:16] VITALS: O2SAT 93
[2022-07-25 14:20] LABS: Color, Urine Yellow (Yellow); Glucose, Dipstick Normal (Normal); Leukocyte Esterase-Dipstick Negative /ul (Negative); Nitrite-Dipstick Negative (Negative); Occult Blood-Urine Negative /ul (Negative); Protein-Dipstick 30 mg/dl (Negative); Specific Gravity, Urine 1.015 (1.002-1.030); Urine Bilirubin Dipstick Negative (Negative); Urine Clarity Sl. Cloudy (Clear); Urine Urobilinogen Normal (Normal)
--- NOTE | 2022-07-25 14:20 | RAD_ITS ---
EXAM: XR CHEST, 1 VIEW CLINICAL INDICATION: fever TECHNIQUE: Frontal view of the chest. This report was created using AIM report generation technology. COMPARISON: 11.22.17 FINDINGS: LUNGS AND PLEURAL SPACES: Unremarkable. No consolidation or edema. No pneumothorax. No effusion. HEART: Unremarkable. Cardiac silhouette not enlarged. MEDIASTINUM: Central airways and mediastinal contour are unremarkable. BONES/JOINTS: Unremarkable. SOFT TISSUES: Unremarkable. RAD/Chest 1 View (Portable) IMPRESSION: No radiographic evidence of acute cardiopulmonary disease. Electronically Signed: Harley Chua MD at 14:52 EST ,
[2022-07-25 14:25] LABS: Ketone-Dipstick 150 mg/dl (Negative)
[2022-07-25 14:27] LABS: Squamous Epithelial Cells - UA 0-5 SEEN /hpf (5-10)
[2022-07-25 14:37] LABS: Internal QC Validated? YES +Cl - CLEAR BKGD; Pregnancy, Urine Negative Negative
--- NOTE | 2022-07-25 15:16 | EDS_ITS ---
HPI History of Present Illness Chief Complaint: General Illness [facility] Medical History Anemia Anxiety Arthritis Back problem Blackout Chest pain Depression H/O emotional problems Heart stopped beating History of anesthesia complications (~2014) History of echocardiogram Injury of head and neck Leg cramps Non-smoker Thyroid disease Thyroid disease Vision problems Wears glasses Home Medications levothyroxine 137 mcg tablet 125 mcg PO DAILY@0600 10/25/15 [History Last Taken 02/08/22 06:00] ferrous sulfate 325 mg (65 mg iron) tablet 325 mg PO DAILY 02/06/22 [History Last Taken Unknown] magnesium 250 mg tablet 250 mg PO DAILY 02/06/22 [History Last Taken Unknown] multivitamin 1 tab PO DAILY 02/06/22 [History Last Taken Unknown] ondansetron 4 mg disintegrating tablet 4 mg PO Q8H PRN PRN Nausea #14 tabs 07/25/22 [Rx Last Taken Unknown] Allergy/AdvReac Type Severity Reaction Status Date / Time Sulfa (Sulfonamide Allergy Unknown Verified 07/25/22 12:32 Antibiotics) Iodinated Contrast Media AdvReac Mild emesis Verified 07/25/22 12:32 [Iodinated Contrast- Oral and IV Dye] Family History Grandmother Cancer Mother Heart disease Diabetes Father Heart disease Other Arthritis CVA (cerebral vascular accident) Hypertension Respiratory abnormalities Surgical History History of Hx of ventral hernia repair Social History Smoking Status: Never smoker alcohol intake: current alcohol intake frequency: a few times a week Alcohol type: beer what type of physical activity do you participate in: walking frequency: 1-2 times per week EXAM Physical Exam Const Vital Signs: 07/25/22 12:28 07/25/22 13:58 Temperature 100.7 F H Temperature Source Temporal Pulse Rate 127 H Respiratory Rate 20 H Respiratory Effort Short of Breath Respiratory Pattern Normal Blood Pressure 129/98 H Blood Pressure Mean 108 Pulse Ox 96 Oxygen Delivery Method Room Air MDM MDM MDM Narrative Medical decision making narrative: Patient presenting with viral symptoms. Started last evening with fever and chills. She states he been coughing for a week and a half. Lab Data Labs: Laboratory Results - last 24 hr 07/25/22 13:55 Urine Color Yellow Urine Clarity Sl. Cloudy Urine pH 8.0 Ur Specific [place] 1.015 Urine Protein 30 H Urine Glucose (UA) Normal Urine Ketones 150 A* Urine Occult Blood Negative Urine Nitrite Negative Urine Bilirubin Negative Urine Urobilinogen Normal Ur Leukocyte Esterase Negative Urine RBC 0 SEEN Urine WBC 0 SEEN Ur Squamous Epith Cells 0-5 SEEN Urine Bacteria 0 SEEN Urine Mucus 0 SEEN Urine Test Negative Radiography Diagnostic Testing: Clinical Impression(s) from Imaging Studies Chest X-Ray 07/25/22 14:20 IMPRESSION: No radiographic evidence of acute cardiopulmonary disease. Electronically Signed: Harley Chua MD at 14:52 EST Reading Location ID and State: [facility] / [place] , Service support , Discharge Plan Triage Chief Complaint: General Illness ED Provider: Randell Hassan Dx/Rx/DC Orders Clinical Impression: COVID-19 Instructions: Coronavirus Disease 2019 (COVID-19): Caring for Yourself or Others Prescriptions: New ondansetron 4 mg tablet,disintegrating 4 mg PO Q8H PRN PRN (Reason: Nausea) Qty: 14 0RF No Action levothyroxine 137 MCG tablet 125 mcg PO DAILY@0600 multivitamin Tablet 1 tab PO DAILY ferrous sulfate 325 mg (65 mg iron) Tablet 325 mg PO DAILY magnesium 250 mg Tablet 250 mg PO DAILY Primary Care Provider: Bahman Lopez Referrals: Bahman Lopez MD [Primary Care Provider] - Disposition Disposition: Home, Self Care
[2022-07-25 15:24] VITALS: PULSE 110; RESP 17; TEMP 36.9; O2SAT 94
== END 2022-07-25 15:24 | disposition home or self-care (01) ==
PROVIDERS: Emergency Provider Student in an Organized Health Care Education/Training Program; PCP Internal Medicine; Visit Provider Student in an Organized Health Care Education/Training Program
DX: U07.1 COVID-19 (principal); R50.9 Fever, unspecified; R00.0 Tachycardia, unspecified
CPT/HCPCS: 71045; 81001; 81025; 87428; 93005; 99283